=== PATIENT | male | born 2000 | race Caucasian/White ===

== ENCOUNTER 2021-02-19 20:01 | Emergency (ER) | payer SELFPAY ==
[2021-02-19] MEDS ORDERED: diphenhydrAMINE 50 MG/ML VIAL ONE (20:08)
[2021-02-19] MEDS ORDERED: EPINEPHrine 1 MG/ML AMP ONE (20:08)
[2021-02-19] MEDS ORDERED: methylPREDNISolone Sod Succ/PF 125 MG/2 ML VIAL ONE (20:08)
[2021-02-19] MEDS ORDERED: Famotidine/PF 20 mg/2ml Vial ONE (20:09)
== END 2021-02-19 22:52 | disposition home or self-care (01) ==
LOC: CSHERS 20:01
DX: T78.40XA Allergy, unspecified, initial encounter (principal); F17.290 Nicotine dependence, other tobacco product, uncomplicated
CPT/HCPCS: 96372; 96374; 96375; J0171; J1200; J2930; S0028